=== PATIENT | female | born 1975 | race Caucasian/White ===

== ENCOUNTER → 2016-08-24 | Outpatient (CLI) | payer BC, OTHER ==
[~2016-08-24] MED LIST: ALPR1TAB2 PO; ALPR2TAB PO; BSP10T PO; BUSPAR PO; CARI250T PO; CEPH-507 PO; CIPR500T78 PO; CITA40TA19 PO; CLON0.123 PO; CLON2TAB45 PO; CRS350T PO; CYCL10TA9 PO; FLUO40CA12 PO; HYDR-2890 PO; HYDR-34 PO; HYDR1CAP2 PO; HYDR25CA PO; IBP800T PO; IBUP-1773 PO; LUBI8CAP PO; LURA80TA3 PO; MELA1TAB10 PO; MIRT15TA PO; MS15TCR PO; NAPR-243 PO; NAPR-689 PO; NAPR220T29 PO; NAPR500T PO; OMEP20CA12 PO; PANT40TA2 PO; PHEN-640 PO; POLY119P5 PO; PROP10TA8 PO; QUET100T PO; SUCR1TAB36 PO
== END ==
LOC: LAB 22:46
PROVIDERS: ATTEND Internal Medicine
DX: Z51.81 Encounter for therapeutic drug level monitoring (principal); Z79.899 Other long term (current) drug therapy
CPT/HCPCS: 36415; 80346

== ENCOUNTER 2022-04-12 02:52 | Emergency (ER) | payer BC, OTHER ==
[~2022-04-12] VITALS: Ht 160 cm; Wt 69.0 kg
[~2022-04-12 02:52] MED LIST changes: +CYCL10TA25 PO; -CYCL10TA9 PO; +MIRT-96 PO; -MIRT15TA PO; +NAPR-1071 PO; -NAPR500T PO; -OMEP20CA12 PO; +OMEP20CA18 PO
--- NOTE | 2022-04-12 03:06 | ED Psychosocial ---
General Chief Complaint: Psych/Social Disorder Stated Complaint: PANIC ATTACK Source: patient Exam Limitations: no limitations History of Present Illness Date Seen by Provider: Apr 12, 2022 Time Seen by Provider: 03:06 Initial Comments Patient is a 46-year-old female who presents to the emergency room with a chief complaint of "panic attack". Patient states that over the last couple of months she has had episodes where she lays down at night and starts to feel very short of breath. She states that this triggers an anxiety or panic attack. She denies any chest pain, nausea, abdominal pain. She states she talked to her psychiatrist or mental health provider about this yesterday. Her provider felt like maybe acid reflux might be contributing to her symptoms. Patient does not endorse any recent stressors other than she gets sad about being "alone". She denies any recent illnesses, fevers, chills, congestion. She does have occasional cough. She is a smoker. She is on medications for hypertension. She denies any heaviness pressure or tightness in her chest. No sweating. She does have BuSpar and hydroxyzine as needed for her anxiety. She also takes 600 mg of Seroquel at night. She has been on Protonix 40 mg for "years". She denies SI or HI. She feels safe at home. She states that she is feeling better after getting to the emergency department and being able to talk to someone. She does not have a therapist that she sees regularly. She sees her mental health provider once every 3 months via Zoom. Timing/Duration: just prior to arrival Severity: moderate Associated Symptoms: anxiety Allergies and Home Medications Allergies Coded Allergies: No Known Drug Allergies (Unverified , 01/20/10) Patient Home Medication List Home Medication List Reviewed: Yes Alprazolam (Xanax) 1 Mg Tablet, 1 MG PO TID, (Reported) Entered as Reported by: ROSETTE GREEN on 02/03/13 1250 Alprazolam (Xanax) 1 Mg Tablet, 1 MG PO BID Prescribed by: MILLY ONEILL on 10/11/15 1319 Fluoxetine HCl (Prozac) 40 Mg Capsule, 40 MG PO DAILY, (Reported) Entered as Reported by: NIVIA CARDENAS on 10/10/15 1346 Hydrocodone Bit/Acetaminophen (Hydrocodon-Acetaminophn 10-325) 1 Each Tablet, 1 EACH PO TID, (Reported) Entered as Reported by: BENITO ASIF on 06/23/13 0311 Hydroxyzine Pamoate (Vistaril) 25 Mg Capsule, 25 MG PO TID PRN for ANXIETY Prescribed by: RANDY WRAY on 11/27/152026 Lurasidone HCl (Latuda) 80 Mg Tablet, 80 MG PO DAILY, (Reported) Entered as Reported by: SWAPNIL BARRETO on 10/11/15 1027 Naproxen (Naprosyn) 500 Mg Tablet, 500 MG PO TID, (Reported) Entered as Reported by: SWAPNIL BARRETO on 10/11/15 1027 Pantoprazole Sodium (Protonix) 40 Mg Tablet.dr, 40 MG PO DAILY, (Reported) Entered as Reported by: SWAPNIL BARRETO on 10/11/15 1027 Pantoprazole Sodium (Protonix) 40 Mg Tablet.dr, 40 MG PO DAILY Prescribed by: MILLY ONEILL on 10/11/15 1319 Propranolol HCl (Propranolol HCl) 10 Mg Tablet, 10 MG PO BID, (Reported) Entered as Reported by: NIVIA CARDENAS on 10/10/15 1346 Quetiapine Fumarate (Seroquel) 100 Mg Tablet, 100 MG PO HS, (Reported) Entered as Reported by: NIVIA CARDENAS on 10/10/15 1346 Sucralfate (Carafate) 1 Gm Tablet, 1 GM PO QID Prescribed by: MILLY ONEILL on 10/11/15 1319 Review of Systems Constitutional: see HPI EENTM: no symptoms reported Respiratory: cough (Occasional), short of breath Cardiovascular: no symptoms reported Gastrointestinal: no symptoms reported Genitourinary: no symptoms reported Musculoskeletal: no symptoms reported Skin: no symptoms reported Psychiatric/Neurological: Anxiety, Depressed, Emotional Problems All Other Systems Reviewed Negative Unless Noted: Yes Past Hqpityv-Kedogb-Ydokra Hx Patient Social History Tobacco Use?: Yes Substance use?: No Alcohol Use?: No Pt feels they are or have been: No Immunizations Up To Date First/Initial COVID19 Vaccinat: NA Seasonal Allergies Seasonal Allergies: No Past Medical History Surgery/Hospitalization HX: ANXIETY, HTN, GERD, LAP BAND, FRED, C-SECT, HYSTERECTOMY Section, Gallbladder, Hysterectomy Reproductive Disorders: No (MENORRHAGIA, FIBROID UTERUS) BIN FILLER History: Hysterectomy Sexually Transmitted Disease: No Chronic Constipation Anxiety Family Medical History Cancer 03 FATHER GRANDPARENTS Cancer of colon 03 FATHER Family history: Breast disease GRANDPARENTS Family history: Diabetes mellitus GRANDPARENTS Family history: Hypertension 03 MOTHER No Family History of: Abdominal aortic aneurysm Alcoholism Congenital heart disease Congestive heart failure Dementia Family history: Alzheimer's disease Family history: Arthritis Family history: Asthma Family history: Cardiovascular disease Family history: Gastrointestinal disease Family history: Thyroid disorder Hereditary disease History of - respiratory disease Myocardial infarction Parkinson's disease Seizure disorder Stroke No Pertinent Family Hx Physical Exam Vital Signs - First Documented 04/12/22 02:59 Temp 36.4 Pulse 98 Resp 18 B/P (MAP) 133/82 (99) Pulse Ox 100 O2 Delivery Room Air Capillary Refill : Height, Weight, BMI Height: 5'3.00" Weight: 130lbs. 0.0oz. 58.098691ho; 23.4 BMI Method:Stated General Appearance: WD/WN, no apparent distress HEENT: PERRL/EOMI Neck: normal inspection Respiratory: lungs clear, normal breath sounds, no respiratory distress, no accessory muscle use Cardiovascular: regular rate, rhythm Gastrointestinal: normal bowel sounds, non tender, soft Extremities: non-tender, normal inspection, no pedal edema Neurologic/Psychiatric: no motor/sensory deficits, alert, normal mood/affect, oriented x 3 Appearance/Memory: appropriate appearance, appropriate insight, neat, no memory impairment Behavior/Eye Contact: cooperative, good eye contact, normal speech Thoughts/Hallucinations: normal thought pattern, no apparent hallucination Skin: normal color, warm/dry Progress/Results/Core Measures Results/Orders My Orders Orders - YANIQUE ERICKSON MD Famotidine Tablet (Pepcid Tablet) (04/12/22 03:30) Antacid Suspension (Mylanta Suspension (04/12/22 03:30) Sucralfate Tablet (Carafate Tablet) (04/12/22 03:30) Lidocaine 2% Viscous 15 Ml (Xylocaine Vi (04/12/22 03:30) Medications Given in ED Current Medications Medications Dose Ordered Sig/Amelia Route Start Time Stop Time Status Last Admin Dose Admin Al Hydrox/Mg Hydrox/Simethicone 30 ml ONCE ONCE PO 04/12/22 03:30 04/12/22 03:31 DC 04/12/22 03:33 30 ML Famotidine 20 mg ONCE ONCE PO 04/12/22 03:30 04/12/22 03:31 DC 04/12/22 03:33 20 MG Lidocaine HCl 5 ml ONCE ONCE PO 04/12/22 03:30 04/12/22 03:31 DC 04/12/22 03:33 5 ML Sucralfate 1 gm ONCE ONCE PO 04/12/22 03:30 04/12/22 03:31 DC 04/12/22 03:33 1 GM Vital Signs/I&O 04/12/22 02:59 Temp 36.4 Pulse 98 Resp 18 B/P (MAP) 133/82 (99) Pulse Ox 100 O2 Delivery Room Air Progress Progress Note : Time: 03:39 Progress Note Patient seen and evaluated, 46-year-old with shortness of breath/anxiety. Evaluation today includes physical exam. Differential diagnosis based on history and physical include panic attack, GERD, atypical presentation of cardiovascular disease, COPD. After patient's exam and history low clinical suspicion for atypical presentation of cardiovascular disease. The patient at no point had any chest pain, pressure or tightness. No ongoing shortness of breath. No diaphoresis or nausea. She does have risk to include smoking and hypertension. No family history. She is not wheezing on exam. She does look a little anxious, more worried. Symptoms have steadily improved as she has been here. As the symptoms come on only when she lays down at night to go to sleep I did think there might be a component of gastroesophageal reflux when she lays down causing her to feel short of breath and panicky. I did give her a GI cocktail and a dose of Pepcid. Discussed with the patient possibly taking [id number] generic Pepcid twice a day for the next 2 to 3 weeks to see if this helps alleviate the symptoms. She is agreeable. No clinical or objective findings to warrant further testing from the emergency department. Consideration for chest x-ray however history and physical do not support the need. She has no increased work of breathing or respiratory distress. Oxygen saturations 99% on room air. Patient will be discharged home with Pepcid and follow-up with Dr. ELLIOTT her primary care physician who she is due to see soon anyways. Departure Impression Primary Impression: Panic attack Disposition: 01 HOME, SELF-CARE Condition: Improved Departure-Patient Inst. Decision time for Depature: 03:42 Referrals: HASMUKH ELLIOTT MD (PCP/Family) Primary Care Physician Patient Instructions: Panic Disorder Add. Discharge Instructions: Continue your daily medications as prescribed. You might consider adding [id number] generic Pepcid/famotidine. One 20 mg tablet twice a day for the next 2 to 3 weeks with your Protonix. If you develop any additional symptoms such as chest pain, nausea, vomiting, fever please return to the emergency department for reevaluation. Please call and follow-up with your primary care provider at [facility]. Copy Copies To 1: HASMUKH ELLIOTT MD, KATHRYN M MD Apr 12, 2022 03:06
[2022-04-12] MEDS ORDERED: FAMOTIDINE 20 MG (PEPCID) TABLET PO ONE (03:30)
[2022-04-12] MEDS ORDERED: ANTACID SUSP 30 ML UDC (MYLANTA) PO ONE (03:30)
[2022-04-12] MEDS ORDERED: SUCRALFATE 1 GM (CARAFATE) TAB PO ONE (03:30)
[2022-04-12] MEDS ORDERED: LIDOCAINE 2% VISCOUS 15 ML UDC PO ONE (03:30)
[2022-04-12 04:01] VITALS: BP 123/79
== END 2022-04-12 04:02 | disposition home or self-care (01) ==
LOC: EDUNIT# 02:52 → ER 02:54
DX: F41.0 Panic disorder [episodic paroxysmal anxiety] (principal); I10 Essential (primary) hypertension; F17.200 Nicotine dependence, unspecified, uncomplicated; Z79.899 Other long term (current) drug therapy; Z28.310 Unvaccinated for COVID-19
CPT/HCPCS: 99283